=== PATIENT | female | born 1970 | race Two or more races ===

== ENCOUNTER 2025-04-11 20:59 | Emergency (ER) | payer OTHER ==
[~2025-04-11] VITALS: Ht 162.6 cm; Wt 65.3 kg
[2025-04-11] MEDS ORDERED: SYNTHROID75 MCG PO (21:32)
[2025-04-11] MEDS ORDERED: INDAPAMIDE2.5 MG PO (21:33)
[2025-04-11] MEDS ORDERED: AZOR 10-20 MG1 EACH (21:33)
[2025-04-11] MEDS ORDERED: METFORMIN HCL1000 M2 (21:33)
[2025-04-11] MEDS ORDERED: DIPHTH,PERTUSS(ACELL),TET VAC 0.5 ML SYRINGE IM ONE (22:27)
[2025-04-11] MEDS ORDERED: ACETAMINOPHEN 500 MG GEL..CAP PO ONE ×2 (22:27→22:30)
[2025-04-11] MEDS ORDERED: TETANUS & DIPHTHERIA TOX,ADULT 0.5 ML VIAL IM ONE (22:30)
== END 2025-04-12 00:59 | disposition home or self-care (01) ==
LOC: ER 20:59
DX: S62.643A Nondisplaced fracture of proximal phalanx of left middle finger, initial encounter for closed fracture (principal); V19.9XXA Pedal cyclist (driver) (passenger) injured in unspecified traffic accident, initial encounter; Y93.89 Activity, other specified; Y92.89 Other specified places as the place of occurrence of the external cause; Y99.9 Unspecified external cause status; E11.9 Type 2 diabetes mellitus without complications; Z79.84 Long term (current) use of oral hypoglycemic drugs; I10 Essential (primary) hypertension; E03.9 Hypothyroidism, unspecified; Z88.0 Allergy status to penicillin